=== PATIENT | female | born 1935 | race Caucasian/White ===

== ENCOUNTER 2016-09-28 09:57 | Emergency (ER) | payer OTHER ==
[2016-09-28 10:07] VITALS: PULSE 57; RESP 17
--- NOTE | 2016-09-28 12:48 | EDPHY ---
HPI/HX/ROS/PE/MDM Narrative: Chief complaint: Fall The HPI: 81-year-old woman with a history of advanced dementia being brought in from [facility] after a mechanical fall there. Pursed EMS report patient was found down. There was no obvious signs of trauma. Patient has a history of advanced dementia and is unable to provide further history. My evaluation she denies any pain. Prior to my evaluation the patient was noted to be up and out of her bed wondering he through the emergency department walked into the another patient's room. Per report she has been in her usual state of health. Further history is unavailable secondary to patient's underlying dementia. ROS: Unavailable secondary to the patient's chronic dementia. Medications: See medications list. The patient is not anticoagulated. Physical exam: Gen: Awake, Alert, pleasantly confused and disoriented HEENT: Atraumatic Nose: no rhinorrhea Eyes: PERRLA, EOMI Mouth: Moist mucosa Neck: Supple, no JVD, full r range of motion without pain, no midline tenderness or step-offs Chest: nontender, lungs clear to auscultation Heart: S1, S2 normal, no murmur Abd: Soft, non-tender, no guarding Back: no CVA tenderness, no midline tenderness Ext: no edema, non-tender Skin: no rash Neuro: CN II-XII intact, Sensation grossly intact, Strength 5/5 in bilateral upper and lower extremities ED Course: 81-year-old who reportedly was found down at [facility]. History is limited given her advanced dementia. Her vital signs are entirely normal with a very mild bradycardia. Blood pressure is normal. She is actually crawled out of bed and ambulated without assistance in the emergency department immediately taken back to her room by nursing staff. Her exam is normal. There are no signs of infection. She is afebrile. Will be useful to check urinalysis to make sure she does not have a urinary tract infection as a source of weakness or fall. is at the bedside. He states that he was not there when she fell this morning as he was at cardiac rehab. He states that right now the patient is in her normal state of health and is acting entirely normally. He does not want her to have undergo a cath urinalysis at this time. He feels that she is normal and would be his preference to take her back home to [facility]. I have explained that I cannot rule out a urinary tract infection as a cause but her examination is unremarkable at that time, she is afebrile, her vital signs are normal. And she has been ambulating unassisted without any difficulty in the emergency department. He is comfortable taking her home at this time without further evaluation. Patient is at her current baseline. General Time Seen by Provider: 09/28/16 11:17 Initial Vital Signs: Initial Vital Signs Temperature (C) 36.3 C 09/28/16 10:05 Heart Rate 57 L 09/28/16 10:05 Respiratory Rate 17 09/28/16 10:05 Blood Pressure 149/69 H 09/28/16 10:05 O2 Sat (%) 95 09/28/16 10:05 O2 Delivery Mode Room Air Allergies/Adverse Reactions: No Known Allergies Allergy (Verified 09/28/16 10:05) Home Medications: Medication Instructions Recorded Acetaminophen 07/16/16 Klor-Con 07/16/16 Lasix 07/16/16 Lisinopril 07/16/16 Zoloft 07/16/16 Departure - Departure Disposition: Home, Routine, Self-Care Clinical Impression: Fall Condition: Good Instructions: Fall Prevention (ED) Additional Instructions: Follow up with her primary care doctor in 2-3 days for any concerns. Return to the emergency department for increasing falls, lightheadedness, fevers , chills, chest pain, shortness of breath, or any other concerns. Referrals: Patient,NotPresent [Unknown] - As per Instructions
[2016-09-28 13:07] VITALS: BP 131/78; TEMP 98.2; O2SAT 96
== END 2016-09-28 13:06 | disposition home or self-care (01) ==
LOC: EDUNIT#
DX: Z04.3 Encounter for examination and observation following other accident (principal); W18.39XA Other fall on same level, initial encounter

== ENCOUNTER 2016-09-28 15:15 | Observation (INO) | payer OTHER ==
[2016-09-28] MEDS ORDERED: NS 500 ML IV ONE (15:29)
[2016-09-28] MEDS ORDERED: ONDANSETRON 4 MG/2 ML VIAL IVP ONE (15:29)
[2016-09-28] MEDS ORDERED: fentaNYL 100 MCG/2 ML INJ IVP ONE (15:29)
--- NOTE | 2016-09-28 15:38 | EDPHY ---
H & P Smoking Status: Unknown if ever smoked HPI/ROS: HPI Mechanical fall, limited +trauma, head injury. 81-year-old female by ambulance. She is in a cervical collar. She comes from [facility]. She had an unwitnessed fall. She suffered lacerations to her forehead and underneath her left on my. Unknown if there was loss of consciousness. Patient suffers from advanced Alzheimer's dementia. She is in the Alzheimer's unit at [facility]. She was seen here in the Emergency Department earlier today after an unwitnessed fall that occurred at approximately 8:00 a.m.. She had a negative trauma exam and assessment at that time and she was discharged back to [facility]. No imaging was done on her initial emergency department visit this morning. She is not on anticoagulants or antiplatelet medications. Unable to obtain further history from her secondary to her dementia. ROS: Constitutional: No fever, no chills. No weakness. Eyes: No discharge. No changes in vision. ENT: No sore throat. No nasal congestion or rhinorrhea. Respiratory: No cough. No shortness of breath. Cardiac: No chest pain, no palpitations. Gastrointestinal: No abdominal pain, no vomiting, no diarrhea. Genitourinary: No hematuria. No dysuria or increased frequency with urination. Musculoskeletal: No back pain. No neck pain. No myalgias or arthralgias. Skin: No rashes. Neurological: No headache. No focal weakness or altered sensation. Past medical history: Advanced Alzheimer's dementia. Osteoarthritis, bilateral knee replacements, right hip replacement. Social history: Her is present with her. As above. Physical Exam: General Appearance: Alert, in cervical collar. This patient is responding to questions with short yes or no answers. This patient appears well-hydrated and well-nourished. Head: Normocephalic atraumatic. Face: Facial bones are stable on palpation. She has a puncture type laceration measuring approximately 1.5 cm just above the left lateral eyebrow. She has a elliptical laceration measuring approximately 2.5 cm just below the left lower eyelid margin. Eyes: Pupils equal and round and reactive to light, no pallor or injection. No proptosis. No lid erythema or edema. ENT, Mouth: Mucous membranes moist. Dentition is intact. No malocclusion of the jaw. No tongue lacerations or abrasions. Pharynx is clear. The bilateral nasal canals are clear. No septal hematoma. Respiratory: There are no retractions, lungs are clear to auscultation with good air movement bilaterally. Chest wall is stable to AP and lateral palpation. Cardiovascular: Regular rate and rhythm. No murmur. Gastrointestinal: Abdomen is soft and nontender, no masses, bowel sounds normal. Neurological: Motor sensory function is intact. Cranial nerves are normal. Cerebellar function intact. Skin: Warm and dry, no rashes. As above. She has a skin tear about the size of a quarter dorsal aspect of the left mid hand. Musculoskeletal: Neck is supple with vague paraspinal tenderness bilaterally from C3 through C6. The trachea is midline. No midline cervical, thoracic, lumbar or sacral tenderness on palpation. No flank tenderness on palpation. Extremities are symmetrical, full range of motion. All joints in the bilateral upper and bilateral lower extremities range without pain or impingement. No tenderness on palpation of the long bones in the bilateral upper and bilateral lower extremities. Psychiatric: Mild agitation. Database: EKG: EKG time is 4:43 p.m.; EKG shows a narrow complex normal sinus rhythm with a ventricular rate of 62. Left axis deviation noted. The OH, QRS, QT intervals are within normal limits. There are no ST-T wave changes indicative of ischemic or injury pattern. No evidence of right heart strain. Interpreted by me. Imaging: AP pelvis x-ray: Right hip prosthesis intact. Negative for fracture, subluxation, dislocation. Interpreted by me. CT head and cervical spine without contrast: Chronic changes only. No acute pathology. Results were discussed with staff radiologist Dr. Jose Moses. Chest x-ray PA and lateral: the cardiac mediastinal silhouette is unremarkable. No evidence of infiltrate or pneumothorax. No acute cardiopulmonary disease process noted. Interpreted by me. Procedures: Please see facial laceration repair notes by physician family medicine physician assistant Hair Christine. Emergency department course: IV placed per EMS. During my initial assessment AP portable chest x-ray was performed and reviewed by myself. Patient started on IV normal saline with 500 cc to be given over the next 1-2 hours. She was initially given 50 mcg of IV fentanyl for pain and 4 mg of IV Zofran. She was sent for CT imaging. 4:35 p.m., patient re-evaluated. Cervical collar was clinically and radiographically cleared. Resting comfortably at this time. Repeat neurologic Assessment is nonfocal. Results of imaging studies and blood work discussed with patient and her . Discussed need for admission for observation and case management consultation for possible placement at a higher level of care. The strongly endorses this. 4:45 p.m., spoke with on-call trauma surgeon Dr. Addison Romero. Case discussed in detail. He agrees with admission to the hospitalist service. They will consult for trauma evaluation and other trauma issues as needed. 4:50 p.m., spoke with hospitalist, Dr. Karl Foley. Patient accepted for admission to the hospitalist service. Patient's remaining emergency department course under my care uneventful. Patient admitted in stable condition to the hospitalist service. Differential Diagnosis: The differential diagnosis on this patient includes but is not limited to mechanical fall, advanced dementia, closed head injury, cervical spine injury, facial lacerations. This represents a partial list of diagnoses considered. These considerations are based on history, physical exam, past history, reassessment and diagnostic testing. (Sophia Angeles) Constitutional: Initial Vital Signs Temperature (C) 36.1 C 09/28/16 15:48 Heart Rate 63 09/28/16 15:48 Respiratory Rate 18 09/28/16 15:48 Blood Pressure 168/71 H 09/28/16 15:48 O2 Sat (%) 100 09/28/16 15:48 O2 Delivery Mode Room Air Allergies/Adverse Reactions: No Known Allergies Allergy (Verified 09/28/16 10:05) Home Medications: Medication Instructions Recorded Acetaminophen [Tylenol ES 500 mg 500 - 1,000 mg PO TID PRN 09/28/16 (*)] Acetaminophen [Tylenol ES 500 mg 500 mg PO DAILY 09/28/16 (*)] Cephalexin [Keflex (*)] 2,000 mg PO PRN PRN 09/28/16 Cholecalciferol Vit D3 [Vitamin D3 4,000 units PO DAILY 09/28/16 2000 units tab (OTC)] Furosemide [Lasix 40 MG (*)] 40 mg PO DAILY 09/28/16 Multivitamins [Multivitamin (*)] 1 each PO DAILY 09/28/16 Potassium Cl [Klor-Con] 10 meq PO DAILY 09/28/16 Sennosides/Docusate Sodium 1 each PO DAILY PRN 09/28/16 [Senokot-S (OTC)] Sertraline HCl [Zoloft 50mg (*)] 50 mg PO DAILY 09/28/16 Medical Decision Making Procedures: Procedure: Laceration repair. I was requested by Because her to perform wound closure I explained the indications, risks and benefits for both laceration repair and anesthetic administration. Verbal consent was obtained from the patient and parent. The laceration on the left inferior orbital region and left eyebrow was anesthetized using 0.5% bupivicaine with epinephrine . After anesthetic administered the patient was observed for a period of time and had no apparent adverse effects. The wound was cleaned, prepped, draped in normal sterile fashion and explored to its base. No foreign body seen, no foreign bodies palpated. The laceration left eyebrow was closed with 3 simple interrupted 6 0 Ethilon sutures. The laceration left inferior orbital region which does not cross the lid margin was closed with 5 simple interrupted 6 0 Ethilon sutures . The wound repair was complex. The procedure was performed by myself. Patient has been informed that scarring will occur, although efforts have been made to minimize this. (Brenden Christine) - Data Points Laboratory Results: Laboratory Results 09/28/16 15:33 09/28/16 15:33 09/28/16 15:33 WBC 8.27 10^3/uL (3.80-9.50) RBC 4.46 10^6/uL (4.18-5.33) Hgb 13.9 g/dL (12.6-16.3) Hct 42.5 % (38.0-47.0) MCV 95.3 fL (81.5-99.8) MCH 31.2 pg (27.9-34.1) MCHC 32.7 g/dL (32.4-36.7) RDW 13.9 % (11.5-15.2) Plt Count 222 10^3/uL (150-400) MPV 11.3 fL (8.7-11.7) Neut % (Auto) 75.0 H % (39.3-74.2) Lymph % (Auto) 17.7 % (15.0-45.0) [place] % (Auto) 6.4 % (4.5-13.0) Eos % (Auto) 0.2 L % (0.6-7.6) Baso % (Auto) 0.2 L % (0.3-1.7) Nucleat RBC Rel Count 0.0 % (0.0-0.2) Absolute Neuts (auto) 6.20 10^3/uL (1.70-6.50) Absolute Lymphs (auto) 1.46 10^3/uL (1.00-3.00) Absolute Monos (auto) 0.53 10^3/uL (0.30-0.80) Absolute Eos (auto) 0.02 L 10^3/uL (0.03-0.40) Absolute Basos (auto) 0.02 10^3/uL (0.02-0.10) Absolute Nucleated RBC 0.00 10^3/uL (0-0.01) Immature Gran % 0.5 % (0.0-1.1) Immature Gran # 0.04 10^3/uL (0.00-0.10) PT 13.1 SEC (12.0-15.0) INR 1.00 (0.83-1.16) APTT 32.4 SEC (23.0-38.0) Sodium 142 mEq/L (134-144) Potassium 4.3 mEq/L (3.5-5.2) Chloride 106 mEq/L (97-110) Carbon Dioxide 25 mEq/l (22-31) Anion Gap 11 mEq/L (8-16) BUN 19 mg/dL (7-23) Creatinine 0.8 mg/dL (0.6-1.0) Estimated GFR > 60 Glucose 177 H mg/dL (70-100) Calcium 10.0 mg/dL (8.5-10.4) Ethyl Alcohol < 10 mg/dL (0-10) Medications Given: Discontinued Medications Fentanyl (Sublimaze) 50 mcg IVP EDNOW ONE Stop: 09/28/16 15:30 Last Admin: 09/28/16 16:00 Dose: 50 mcg Sodium Chloride (Ns) 500 mls @ 0 mls/hr IV EDNOW ONE PRN Reason: Wide Open Stop: 09/28/16 15:30 Last Admin: 09/28/16 16:00 Dose: 500 mls Ondansetron HCl (Zofran) 4 mg IVP EDNOW ONE Stop: 09/28/16 15:30 Last Admin: 09/28/16 16:00 Dose: 4 mg Departure - Departure Disposition: [facility] Inpatient Acute Clinical Impression: Chronic dementia, Face lacerations, Multiple falls Condition: Fair
[2016-09-28 15:51] LABS: % IMMATURE GRANULYOCYTES 0.5 % (0.0-1.1); ABSOLUTE IMMATURE GRANULOCYTES 0.04 10^3/uL (0.00-0.10); ADD DIFF? NO; ADD MORPH? NO; ADD SCAN? NO; ATYPICAL LYMPHOCYTE FLAG 0 (0-99); FRAGMENT RBC FLAG 30 (0-99); HEMATOCRIT 42.5 % (38.0-47.0); HEMOGLOBIN 13.9 g/dL (12.6-16.3); LEFT SHIFT FLG 0 (0-99); LIPEMIA HEMOLYSIS FLAG 80 (0-99); MEAN CELL HEMOGLOBIN 31.2 pg (27.9-34.1); MEAN CELL HEMOGLOBIN CONCENTR. 32.7 g/dL (32.4-36.7); MEAN CELL VOLUME 95.3 fL (81.5-99.8); MEAN PLATELET VOLUME 11.3 fL (8.7-11.7); PLATELET CLUMPS FLAG 20 (0-99); PLATELET COUNT 222 10^3/uL (150-400); RED BLOOD CELL COUNT 4.46 10^6/uL (4.18-5.33); RED CELL DISTRIBUTION WIDTH 13.9 % (11.5-15.2)
[2016-09-28 15:59] LABS: APTT 32.4 SEC (23.0-38.0); PROTIME(PATIENT) 13.1 SEC (12.0-15.0)
--- NOTE | 2016-09-28 16:00 | CT ---
CT Brain Without Contrast 1537 hours History: Closed head injury with left frontal laceration. Rule out intracranial hemorrhage. Technique: Axial computed tomographic images of the brain without contrast. Images were reconstruct ed down to 1.25 mm slice thickness. Dose reduction techniques were utilized. Findings: Ventricles, cisterns, and sulci are widened consistent with moderate to marked atrophy. No hydrocephalus, masses, midline shift/herniation, or subdural hematomas. No intraparenchymal hemorrha ge or mass effect. Moderate hypodensities are seen in the white matter of bilateral cerebral hemisphe res. There is no acute peripheral cerebral infarct seen. Arteriosclerotic calcifications are noted associated with distal ICA in the parasellar location bilaterally. Bone windows demonstrate no displaced fractures. There is soft tissue swelling over the left frontal bone. Focal mucous retention cyst is noted inferior right maxillary sinus. Otherwise, the paranasal sinuses and mastoid air cells are clear. Impression: 1. Moderate to marked atrophy. 2. No hemorrhage, mass effect, or definite acute peripheral infarct. 3. Moderate nonspecific hypodensities in the white matter of bilateral cerebral hemispheres. Differen tial diagnosis includes microvascular ischemic disease, post-infectious/post-inflammatory sequela, at ypical demyelinating disease, or migraine-related sequela. Small white matter lacunar infarcts may al so have this appearance. These findings were discussed by telephone with Dr. Vinny Angeles at 1605 hrs.
--- NOTE | 2016-09-28 16:07 | CT ---
CT Cervical Spine 1537 hours History: Recent trauma. Evaluate for possible cervical spine injury. Technique: Spiral imaging was obtained from the base of skull to the upper chest. Images were reconst ructed at 1.25 mm slice thickness. Images were reconstructed in multiple planes. Dose reduction techn iques were utilized. Findings: Vertebral body heights are well maintained. There are no subluxations. No fractures are see n. Moderate to marked intervertebral disk space narrowing is present from C3-C4 through C6-C7 along w ith bilateral avok-ko-owterkyy facet hypertrophy from C2-C3 through C7-T1. Moderate to severe spinal stenosis is suspected at C5-C6. Paravertebral soft tissues demonstrate no significant abnormality. Impression: 1. No acute osseous abnormality seen associated with the cervical spine. 2. Degenerative disk disease from C3-C4 through C6-C7 along with facet hypertrophy is present above. These findings were discussed by telephone with Dr. Vinny Angeles at 1605 hrs.
[2016-09-28 16:11] LABS: ANION GAP 11 mEq/L (8-16); CARBON DIOXIDE 25 mEq/l (22-31); CHLORIDE 106 mEq/L (97-110); CREATININE 0.8 mg/dL (0.6-1.0); ETHANOL SERUM < 10 mg/dL (0-10); GLOMERULAR FILTRATION RATE > 60; GLUCOSE 177 mg/dL (70-100); POTASSIUM 4.3 mEq/L (3.5-5.2); SODIUM 142 mEq/L (134-144)
--- NOTE | 2016-09-28 16:32 | DX ---
Portable AP chest. September 28, 2016At 1524 History: Trauma. Fall. Comparison Study: July 16, 2016. Findings: Moderate enlargement of the cardiac silhouette. No focal infiltrate, pleural effusion, pneu mothorax. No rib fracture identified. Calcifications compatible with loose bodies present in the subscapularis recess of the right shoulder joint. Impression: Moderate cardiomegaly. No acute abnormality identified.
--- NOTE | 2016-09-28 16:36 | DX ---
AP pelvis. September 28, 2016. History: Trauma. Findings: Surgical features of a prior right hip arthroplasty are identified, with incomplete visuali zation of the femoral stem. No hardware complication of the visualized aspects of the prosthesis. Moderate degenerative joint space narrowing of the left hip joint. No acute pelvic or proximal femoral fracture. Impression: 1. Negative for acute fracture. 2. Prior right hip arthroplasty, incompletely characterized.
--- NOTE | 2016-09-28 16:45 | CPEKG ---
Heart Rate: 62 RR Interval: 968 QRSD Interval: 96 QT Interval: 412 QTC Interval: 419 QRS [place]: -31 T Wave [place]: 62 EKG Severity - ABNORMAL ECG - EKG Impression: ATRIAL FIBRILLATION EKG Impression: LEFT AXIS DEVIATION Electronically Signed By: Sophia Angeles 28-Sep-2016 16:54:44
[2016-09-28 17:06] LABS: COLOR YELLOW; LEUKOCYTE ESTERASE,URINE NEGATIVE (NEGATIVE); NITRITE,URINE NEGATIVE (NEGATIVE)
[2016-09-28 17:13] LABS: MUCUS TRACE /lpf (NONE-1+)
--- NOTE | 2016-09-28 19:29 | PDCONSULT ---
General Office Dispatcher Note: Trauma Consult Mrs. Broderick is an 81 y/o female admitted to the medical service with trauma consult requested. She was found down early today at [facility] and was brought to ED for evaluation. She was seen and released with no observed injury and diagnosis of a possible UTI and recurrent fall. She returned home with her and was found down again with an unwitnessed fall. She sustained left facial trauma and superficial lacerations around the orbit. Due to an underlying dementia, she is unable to give additional history. Reviewing her medical records it is apparent that she has presented to the ED on 4 occasions for evaluation after falling in the past 15 months. PMH: dementia, arthritis meds: Zoloft, Lasix, Chlor-con, Keflex NKDA SH: lives at [facility] with her FH: not obtainable ROS: Pt denies any pain/poor historian PE: pleasant elderly female in NAD HEENT: no scleral icterus/adenopathy/trachea midline/sutured lacs left mandaen and infra-orbital neck non tender to palpation/ Chest: lungs clear to auscultation CVS: RRR abd: soft/mildly distended/+BS pelvis: stable to anterior/lateral compression ext: laceration repaired dorsum of right hand/distal NV intact/L TKA bilateral +2 pitting edema with compression stockings in place Neuro: O x 1, no focal motor/sens defecits/gait testing not performed CT Head/C-spine: no acute traumatic injury/marked cerebral atrophy with associated microvascular disease no cervical spine fracture/extensive degenerative changes CXR/AP Pelvis: no fracture, pneumothorax, infiltrate-mild cardiomegaly wbc 8.2 Hgb 13.9 Hct 42.5 plat 222K Na 142 K 4.3 creat 0.8 gluc 177 UA + blood/ 3-5 rbc/5-10 wbc ,leuk est neg, nitrites neg Imp: s/p unwitnessed fall with facial lacerations/no evidence of intracranial hemorrhage on CT advanced dementia Rec: admit to medicine for further observation and placement reconsult trauma surgery as needed Pts recurrent falls are certainly a concern for safety in her current living situation
[2016-09-28] MEDS ORDERED: SENNOSIDES/DOCUSATE SODIUM TAB PO PRN (20:30)
[2016-09-28] MEDS ORDERED: ACETAMINOPHEN 500 MG TAB PO PRN (20:30)
[2016-09-28] MEDS ORDERED: ONDANSETRON 4 MG/2 ML VIAL IVP PRN (20:40)
[2016-09-28] MEDS ORDERED: ONDANSETRON DISINTEGRATING 4 MG TAB PO PRN (20:40)
[2016-09-28] MEDS ORDERED: NS 1,000 ML IV SCH (20:45)
--- NOTE | 2016-09-28 21:29 | GHP ---
[f rep st] HISTORY AND PHYSICAL DATE OF ADMISSION: 09/28/2016 DATE OF EVALUATION: 09/28/2016 HISTORY OF PRESENT ILLNESS: The patient is a pleasant 81-year-old lady with dementia, who lives in a locked memory unit. She had 2 mechanical falls today. She had a mechanical fall earlier today, was seen in the emergency department and discharged home. She did not have a urinalysis at that time, a lthough there were no symptoms directly attributable to UTI. The patient has significant dementia an d is really unable to provide any meaningful history. She went home, returned, had a 2nd fall with facial lacerations, and was brought back here. In the emergency department, trauma workup was negative. She was seen by Trauma Surgery, who felt no further trauma care was necessary. She had a nonischemic EKG. When I see the patient, she is speaking about being late for the [facility], but is unable to interact with me in a meaningful way. I reviewed her paperwork, which confirms do not resuscitate status and suggests that she is likely at her baseline. This represents a failure of ADLs, even in an observed supervised setting. REVIEW OF SYSTEMS: Complete 10-point review of systems attempted, but unable to be conducted given h er level of dementia. PAST MEDICAL HISTORY: 1. Dementia. 2. Depression. 3. History of UTI. 4. Osteoarthritis. 5. Bilateral knee arthroplasties. 6. Right hip arthroplasty. ALLERGIES: No known drug allergies. MEDICATIONS: Home medications are Zoloft, senna, docusate, potassium, multivitamin, Lasix, vitamin D 3, Keflex p.r.n., Tylenol. SOCIAL HISTORY: Lives at [facility], is a locked memory unit. It is unclear that the patient h as drank alcohol or smoked cigarettes in the past. She does not do them now. FAMILY HISTORY: Parents . PHYSICAL EXAM: VITAL SIGNS: Temp 36.1, blood pressure 168/71, pulse 63, breathing 18 times a minute , 100% on room air. GENERAL: No acute distress. Lying flat. HEENT: Sclerae anicteric. Oropharyn x clear. Mucous membranes moist. NECK: Supple without lymphadenopathy or JVD. LUNGS: Clear to au scultation bilaterally. HEART: S1, S2. ABDOMEN: Soft, nontender, nondistended. LOWER EXTREMITIES : Without edema. Calves are nontender. SKIN: Without rash. NEUROLOGIC Nonfocal, but limited. LABS: Ethanol less than 10. UA shows 5-10 white cells, 3-5 red cells. Sodium 142, potassium 4.3, c hloride 106, bicarb 21, BUN 19, creatinine 0.8. Coags normal. White count 8.3, hematocrit 43, plate lets are 222,000. IMAGING STUDIES: EKG, interpreted by me, shows sinus at 62 with left axis deviation. Normal interva ls. There are no ST or T-wave changes. Chest x-ray, interpreted by me, shows cardiomegaly, but otherwise no acute cardiopulmonary disease. C-spine CT shows no osseous abnormality seen, degenerative disk disease. Pelvis x-ray: Negative for fracture, prior right hip arthroplasty. I discussed the case with Dr. Sophia Angeles. ASSESSMENT/PLAN: 81-year-old female with severe dementia, here with recurrent falls. 1. Falls: This represents a failure of safe living in an observed setting. We will check orthostat ics. The patient is not on any culprit medicines such as alpha blockers, etc. Will give her a liter of IV fluids. I will hold her Lasix, although she appears euvolemic on exam. I suspect the etiolog y is a failure to incorporate visual and tactile clues of her environment given her advanced dementia . 2. Pyuria: This is mild, will not treat. 3. Dementia: We will minimize sedating meds and not use anticholinergic meds. 4. Prophylaxis: Pharmacologic prophylaxis indicated. 5. Disposition: Inpatient status. /[id number]/MOD
--- NOTE | 2016-09-29 10:07 | SOAPPROG ---
SOAP Progress Note Assessment/Plan: Assessment: 81yo s/p fall from standing resulting in left facial laceration (sutured in ED) , in setting of advanced dementia Awakens to voice but does not follow simple motor commands left facial ecchymosis mild, dry bandages over sutured laceration chest CTA B/L no obvious distress when palpating chest wall, abdomen moving all extremities Plan: sutures should come out around Oct 04-Oct 05, put note in D/C summary no other obvious trauma, will sign off 09/29/16 10:04 Objective: Vital Signs Temp Pulse Resp BP Pulse Ox 36.9 C 62 18 125/58 H 91 L 09/29/16 08:00 09/29/16 08:00 09/29/16 08:00 09/29/16 08:00 09/29/16 08:00 09/28/16 09/29/16 09/30/16 05:59 05:59 05:59 Intake Total 1000 Balance 1000 PT 13.1 SEC (12.0-15.0) 09/28/16 15:33 INR 1.00 (0.83-1.16) 09/28/16 15:33 ICD10 Worksheet Patient Problems: Problems Problem Status Diagnosed Chronic dementia Acute Face lacerations Acute Multiple falls Acute
[2016-09-29 10:26] LABS: % IMMATURE GRANULYOCYTES 0.2 % (0.0-1.1); ABSOLUTE IMMATURE GRANULOCYTES 0.01 10^3/uL (0.00-0.10); ADD DIFF? NO; ADD MORPH? NO; ADD SCAN? NO; ATYPICAL LYMPHOCYTE FLAG 10 (0-99); FRAGMENT RBC FLAG 0 (0-99); HEMATOCRIT 38.4 % (38.0-47.0); HEMOGLOBIN 12.2 g/dL (12.6-16.3); LEFT SHIFT FLG 0 (0-99); LIPEMIA HEMOLYSIS FLAG 80 (0-99); MEAN CELL HEMOGLOBIN 30.7 pg (27.9-34.1); MEAN CELL HEMOGLOBIN CONCENTR. 31.8 g/dL (32.4-36.7); MEAN CELL VOLUME 96.7 fL (81.5-99.8); MEAN PLATELET VOLUME 11.7 fL (8.7-11.7); PLATELET CLUMPS FLAG 10 (0-99); PLATELET COUNT 160 10^3/uL (150-400); RED BLOOD CELL COUNT 3.97 10^6/uL (4.18-5.33); RED CELL DISTRIBUTION WIDTH 13.9 % (11.5-15.2)
[2016-09-29] MEDS: ACETAMINOPHEN 500 MG TAB PO SCH (10:54)
[2016-09-29] MEDS: SERTRALINE HCL 50 MG TAB PO SCH (10:57)
[2016-09-29] MEDS: POTASSIUM CL 10 MEQ TAB PO SCH (10:57)
[2016-09-29] MEDS: CHOLECALCIFEROL VIT D3 2,000 UNITS TAB/CAP PO SCH (10:57)
[2016-09-29] MEDS: MULTIVITAMINS 1 EACH TAB PO SCH (10:57)
[2016-09-29] MEDS: ENOXAPARIN 30 MG/0.3 ML SYR SC SCH (10:58)
[2016-09-29 11:38] LABS: ANION GAP 5 mEq/L (8-16); CALCIUM 8.8 mg/dL (8.5-10.4); CARBON DIOXIDE 25 mEq/l (22-31); CHLORIDE 111 mEq/L (97-110); CREATININE 0.7 mg/dL (0.6-1.0); GLOMERULAR FILTRATION RATE > 60; GLUCOSE 93 mg/dL (70-100); SODIUM 141 mEq/L (134-144)
--- NOTE | 2016-09-29 16:39 | HOSPPROG ---
Hospitalist Progress Note Assessment/Plan: #FALLS, LIKELY MECHANICAL VS SENSORY/MOTOR DEFICIT #ADVANCED DEMENTIA: AT BASELINE #LEFT FACIAL LACERATION S/P SUTURE REPAIR: WILL NEED F/U FOR SUTURE REMOVAL B/W OCT 04-OCT 2 #PYURIA, NEGATE NITRATE OR LE. WILL NOT TREAT #DVT PROPH: LOVENOX #CODE: S: NO O/N EVENT APPEARS COMFORTABLE O: VSS NAD ALERT, AWAKE LEFT FACIAL BRUISING, DRESSING IN PLACE NO JVD RRR CTAB B S/NT/ND NO EDEMA LABS REVIEWED Objective: Vital Signs Temp Pulse Resp BP Pulse Ox 36.9 C 62 18 125/58 H 91 L 09/29/16 08:00 09/29/16 08:00 09/29/16 08:00 09/29/16 08:00 09/29/16 08:00 Laboratory Results 09/29/16 09:58 09/29/16 09:58 09/28/16 09/29/16 09/30/16 05:59 05:59 05:59 Intake Total 1000 Balance 1000 PT 13.1 SEC (12.0-15.0) 09/28/16 15:33 INR 1.00 (0.83-1.16) 09/28/16 15:33 ICD10 Worksheet Patient Problems: Problems Problem Status Diagnosed Chronic dementia Acute Face lacerations Acute Multiple falls Acute
[2016-09-30] MEDS: CHOLECALCIFEROL VIT D3 2,000 UNITS TAB/CAP PO SCH (09:37)
[2016-09-30] MEDS: ENOXAPARIN 30 MG/0.3 ML SYR SC SCH (09:38)
[2016-09-30] MEDS: SERTRALINE HCL 50 MG TAB PO SCH (09:38)
[2016-09-30] MEDS: ACETAMINOPHEN 500 MG TAB PO SCH (09:38)
[2016-09-30] MEDS: MULTIVITAMINS 1 EACH TAB PO SCH (09:38)
[2016-09-30] MEDS: POTASSIUM CL 10 MEQ TAB PO SCH (09:38)
--- NOTE | 2016-09-30 13:21 | HOSPPROG ---
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 WILL NOT TREAT #DEBILITY: WORKING WITH PT #DVT PROPH: LOVENOX #DISPO: WILL HOPEFULLY DISCHARGE SOON. CASE MANAGEMENT WILL DISCUSS DISCHARGE OPTIONS WITH THE PT'S SON. WE WILL CHECK TSH AND B12 IN THE A.M. PLAN: PER ABOVE WILL ALSO CHECK TSH, B12 PT/OT S: NO O/N EVENT THE PT'S IS HOPING THAT THE PATIENT CAN HAVE ADDITIONAL ASSISTANCE ONCE DISCHARGED. O: VSS NAD ALERT, AWAKE LEFT FACIAL BRUISING, DRESSING IN PLACE NO JVD RRR CTAB B S/NT/ND NO EDEMA Objective: Vital Signs Temp Pulse Resp BP Pulse Ox 37.2 C 63 18 159/69 H 91 L 09/30/16 08:00 09/30/16 09:16 09/30/16 08:00 09/30/16 09:16 09/30/16 08:00 Laboratory Results 09/29/16 09:58 09/29/16 09:58 09/29/16 09/30/16 10/01/16 05:59 05:59 05:59 Intake Total 1000 600 Balance 1000 600 PT 13.1 SEC (12.0-15.0) 09/28/16 15:33 INR 1.00 (0.83-1.16) 09/28/16 15:33 ICD10 Worksheet Patient Problems: Problems Problem Status Diagnosed Chronic dementia Acute Face lacerations Acute Multiple falls Acute
[2016-10-01 00:09] VITALS: PULSE 55; TEMP 97.7
[2016-10-01 08:13] VITALS: BP 145/66; RESP 18; O2SAT 93
[2016-10-01] MEDS: SERTRALINE HCL 50 MG TAB PO SCH (09:34)
[2016-10-01] MEDS: CHOLECALCIFEROL VIT D3 2,000 UNITS TAB/CAP PO SCH (09:34)
[2016-10-01] MEDS: MULTIVITAMINS 1 EACH TAB PO SCH (09:34)
[2016-10-01] MEDS: ENOXAPARIN 30 MG/0.3 ML SYR SC SCH (09:34)
[2016-10-01] MEDS: ACETAMINOPHEN 500 MG TAB PO SCH (09:34)
[2016-10-01] MEDS: POTASSIUM CL 10 MEQ TAB PO SCH (09:34)
--- NOTE | 2016-10-01 12:43 | PDIAF ---
- Diagnosis Diagnosis: Dementia, Mechanical Fall, Facial laceration Code Status: Do Not Resuscitate - Medication Management Discharge Medications: Medications to Continue on Transfer Acetaminophen [Tylenol ES 500 mg (*)] 500 - 1,000 mg PO TID PRN 09/28/16 [Last Taken Unknown] Acetaminophen [Tylenol ES 500 mg (*)] 500 mg PO DAILY 09/28/16 [Last Taken Unknown] Cephalexin [Keflex (*)] 2,000 mg PO PRN PRN 09/28/16 [Last Taken Unknown] Cholecalciferol Vit D3 [Vitamin D3 2000 units tab (OTC)] 4,000 units PO DAILY [Last Taken 09/28/16] Furosemide [Lasix 40 MG (*)] 40 mg PO DAILY 09/28/16 [Last Taken 09/28/16] Multivitamins [Multivitamin (*)] 1 each PO DAILY 09/28/16 [Last Taken Unknown] Potassium Cl [Klor-Con 10 meq (RX)] 10 meq PO DAILY 09/28/16 [Last Taken Unknown ] Sennosides/Docusate Sodium [Senokot-S] 1 each PO DAILY PRN 09/28/16 [Last Taken Unknown] Sertraline HCl [Zoloft 50mg (*)] 50 mg PO DAILY 09/28/16 [Last Taken 09/28/16] Group Home Antibiotics: NA Discharge Medications: Refer to the Discharge Home Medication list for PRN reason. PICC Care - Routine: N/A - Orders Services needed: Home Care, Registered Nurse, Physical Therapy, Occupational Therapy Home Care Face to Face: I certify that this patient was under my care and that I had the required [id number] encounter meeting the encounter requirements on the discharge day. My findings support the fact that the patient is homebound as defined in CMS Chapter 7 Medicare Benefits Manual 30.1.1, The condition of the patient is such that there exists a normal inability to leave home and consequently, leaving home would require a considerable and taxing effort. Diet Recommendation: no restrictions on diet Whitten: Not applicable Activity/Weight Bearing Restrictions: wheelchair with chair alarm, if possible Additional: please arrange for close monitoring when ambulating, chair alarm when in wheelchair, if possible - Follow Up Care Current Providers and Referrals: Patient,NotPresent [Unknown] - As per Instructions Slade Hopkins MD [Medical Doctor] - (please schedule follow-up next week for wound reassessment)
--- NOTE | 2016-10-01 17:46 | PDDCSUM ---
Discharge Summary Discharge Summary: DISCHARGE SUMMARY FOLLOW-UP ITEMS: Follow up with Dr. Hopkins for laceration reassessment DATE OF ADMISSION: 09/28/2016 DATE OF DISCHARGE: 10/01/2016 DISCHARGE DIAGNOSES: 1. Advanced Dementia 2. Acute mechanical fall 3. Left facial laceration 4. Asymptomatic bacteriuria CONSULTATIONS: Trauma by Dr. Hopkins PROCEDURES / IMAGING: Head CT demonstrating no evidence of intracranial hemorrhage CHIEF COMPLAINT: Acute mechanical fall SUBJECTIVE: Patient reports she is not in pain PHYSICAL EXAM ON DISCHARGE: Systolic blood pressure is 140, heart rates in the 60s, negative orthostatics, afebrile overnight, satting well on room air, patient is disoriented to place and time, she has an abrasion around her left orbit LABS ON DISCHARGE: TSH 4.5, urinalysis unremarkable, B12 650 HOSPITAL COURSE BY PROBLEM: 1. Advanced dementia. Patient has underlying advanced dementia and is in the memory care unit at [facility]. She does not have much insight into her gait instability and she is a high fall risk. This will be further discussed below. At the present time, patient's cognition is at her baseline. She will receive ongoing care at the memory care unit at [facility]. 2. Acute mechanical fall. The patient presented with acute mechanical fall, tripping over carpet and striking her face on the floor. She remains a very high fall risk, particularly since her baseline gait has progressed to shuffling. We have discussed with the patient's that physical and occupational therapy are unlikely to improve the patient's overall physical mobility, but these therapy modalities may help identify ways in which the patient can more safely ambulate and navigate with the world and in particular how her caretakers at [facility] can assist her in doing so. 1 suggestion is that the patient sit in a wheelchair when she is out of bed and she utilizes a seat alarm so that staff members can assist her when she chooses to stand up and ambulate. This idea was suggested to [facility] memory care unit. 3. Asymptomatic bacteriuria. Patient's urinalysis was unremarkable, she did not receive any antibiotics as she did not have an overt urinary tract infection. 4. Left facial laceration. Patient received sutures for repair as well as a trauma evaluation by Dr. Hopkins. It is recommended that the patient follow up with Dr. Hopkins practice next week for suture removal. DISCHARGE MEDICATIONS: Please see official discharge medication reconciliation sheet in chart , continue all of her home medications without any changes. DISCHARGE INSTRUCTIONS: Patient should follow up with Dr. Hopkins next week. TIME SPENT: Greater than 30 minutes were spent on direct patient care, as well as discharge planning and preparation.
== END 2016-10-01 15:08 | disposition home health service (06) ==
LOC: EDUNIT# → INTOOBSV 16:52 → F3E 18:34
PROVIDERS: ADMIT Internal Medicine; ATTEND Internal Medicine
PROC: 08QRXZZ Repair Left Lower Eyelid, External Approach (ICD-10-PCS; principal; 2016-09-28)
PROC: 0HQ1XZZ Repair Face Skin, External Approach (ICD-10-PCS; 2016-09-28)
DX: F03.90 Unspecified dementia, unspecified severity, without behavioral disturbance, psychotic disturbance, mood disturbance, and anxiety (principal); S01.81XA Laceration without foreign body of other part of head, initial encounter; S01.112A Laceration without foreign body of left eyelid and periocular area, initial encounter; W01.0XXA Fall on same level from slipping, tripping and stumbling without subsequent striking against object, initial encounter; Y92.129 Unspecified place in nursing home as the place of occurrence of the external cause; R29.6 Repeated falls; R82.71 Bacteriuria; F32.9 Major depressive disorder, single episode, unspecified; I51.7 Cardiomegaly; Z96.653 Presence of artificial knee joint, bilateral; Z87.440 Personal history of urinary (tract) infections; Z96.641 Presence of right artificial hip joint; Z66 Do not resuscitate
CPT/HCPCS: 12013; 70450; 71010; 72125; 72170; 93005; 96374; 96375; 97162; 97165; 99285; G0378; G8978; G8979; J1650; J2405; J3010; 82607-90; G0390; G0480